=== PATIENT | male | born 1960 | race Caucasian/White ===

== ENCOUNTER 2019-08-06 09:19 | Outpatient (CLI) | payer BC, OTHER ==
--- NOTE | 2019-08-06 09:39 | RAD ---
EXAM: Chest 2 views: HISTORY: Night sweats and fever COMPARISON: None. FINDINGS: There is a normal-sized cardiomediastinal silhouette. There is no evidence of consolidation, mass, or pleural effusion. The bones are unremarkable. IMPRESSION: No evidence of acute cardiopulmonary disease
== END 2019-08-06 09:20 | disposition home or self-care (01) ==
LOC: SCSRAD 09:19
PROVIDERS: ATTEND Internal Medicine
DX: R61 Generalized hyperhidrosis (principal)
CPT/HCPCS: 71046

== ENCOUNTER 2022-04-04 05:44 | Day surgery (SDC) | payer BC ==
[2022-03-30 15:05] LABS: Bilirubin Neg (Negative); Blood, Urine 25 (Negative); Clarity Clear (Clear); Glucose, Urine (Dipstick) Normal (Negative); Ketone, Urine Negative (Negative); Leukocyte Negative (Negative); Nitrite Negative (Negative); Protein, Urine (Dipstick) Negative (Neg-Trace); Urobilinogen Normal mg/dL (Less than 2)
[2022-03-30 15:13] LABS: Mean Corpuscular HGB CONC 33.7 g/dL (32.0-36.0); Mean Corpuscular Hemoglobin 29.7 pg (27.0-33.0); Mean Corpuscular Volume 88.1 fl (81.2-95.1); Mean Platelet Volume 10.3 fl (7.4-10.4); Platelet Count 291 10x3/uL (150-450); Red Blood Cell (RBC) Count 4.71 10x6/uL (4.32-5.72); White Blood Cell (WBC) Count 4.6 10x3/uL (3.5-10.5)
[2022-03-30 15:16] LABS: Bacteria/HPF None Seen HPF (None Seen); RBC/HPF 0-3 HPF (0-3); Squamous Epithelial 0-3 HPF (0-3); WBC/HPF None Seen HPF (0-3)
[2022-03-30 15:29] LABS: INR-International Normal Ratio 0.9; PTT 28.2 sec (22.0-33.0); Prothrombin Time 9.7 sec (9.5-12.1)
[2022-03-30 15:33] LABS: Anion Gap 15 mmol/L (10-20); BUN (Urea Nitrogen) 18 mg/dL (8.4-25.7); Calc. Creatinine Clearance 0 mL/min (70-130); Calcium 9.3 mg/dL (7.8-10.44); Carbon Dioxide 27 mmol/L (22-29); Chloride 105 mmol/L (98-107); Estimated GFR 70; Glucose 85 mg/dL (70-105); Potassium 4.1 mmol/L (3.5-5.1); Sodium 143 mmol/L (136-145)
[2022-04-03 09:49] VITALS: BMI 24.3
[2022-04-04] MEDS ORDERED: B & O 30 MG SUPP ONE (07:16)
[2022-04-04] MEDS ORDERED: fentaNYL Citrate/PF 100 MCG/2 ML SYRINGE ONE (07:21)
[2022-04-04] MEDS ORDERED: Levofloxacin 500 mg/D5W 100 ml Premix Bag ONE (07:22)
[2022-04-04] MEDS ORDERED: SUGAMMADEX SODIUM 200 MG/2 ML VIAL ONE (07:22)
[2022-04-04] MEDS ORDERED: Dexamethasone 20 MG/5 ML VIAL ONE (07:32)
[2022-04-04] MEDS ORDERED: Ketorolac Tromethamine 30 MG/ML VIAL ONE (07:32)
[2022-04-04] MEDS ORDERED: Ondansetron PF 4 MG/2 ML Vial ONE (07:32)
[2022-04-04] MEDS ORDERED: PROPOFOL 200 MG/20 ML VIAL ONE (07:32)
[2022-04-04] MEDS ORDERED: PHENYLEPHRINE-NS 100 MCG/ML 10 ML SYRINGE ONE (07:32)
[2022-04-04] MEDS ORDERED: Promethazine HCl 25 MG/ML VIAL IVPB PRN (07:57)
[2022-04-04] MEDS ORDERED: HYDROmorphone 2 MG/ML VIAL SLOW IVP PRN (07:57)
[2022-04-04] MEDS ORDERED: Meperidine HCl/PF 25 MG/ML VIAL SLOW IVP PRN (07:57)
[2022-04-04] MEDS ORDERED: Phenazopyridine HCl 100 MG TAB ONE (08:53)
[2022-04-04] MEDS ORDERED: Oxybutynin 5 MG TAB ONE (08:53)
[2022-04-04] MEDS ORDERED: HYDROcodone/Acetaminophen 5/325 mg Tablet ONE (10:40)
== END 2022-04-04 12:09 | disposition home or self-care (01) ==
LOC: SDC 05:44
PROVIDERS: ATTEND Urology
PROC: 0T7D8DZ Dilation of Urethra with Intraluminal Device, Via Natural or Artificial Opening Endoscopic (ICD-10-PCS; principal; 2022-04-04)
DX: N40.1 Benign prostatic hyperplasia with lower urinary tract symptoms (principal); N32.3 Diverticulum of bladder; R35.0 Frequency of micturition; N52.9 Male erectile dysfunction, unspecified; I10 Essential (primary) hypertension; Z79.899 Other long term (current) drug therapy; Z98.890 Other specified postprocedural states
CPT/HCPCS: 80048; 81001; 85027; 85610; 85730; 86850; 86900; 86901; 87086; J1100; J1885; J1956; J2405; J2704; L8699

== ENCOUNTER 2024-02-12 06:04 | Observation (INO) | payer BC ==
[2024-02-11 10:05] LABS: Bacteria/HPF None Seen HPF (None Seen); Bilirubin Negative (Negative); Blood, Urine 2+ (Negative); Clarity Clear (Clear); Glucose, Urine (Dipstick) Normal (Negative); Ketone, Urine Negative (Negative); Leukocyte Negative Leu/uL (Negative); Nitrite Negative (Negative); Protein, Urine (Dipstick) 10 mg/dL (Neg-Trace); RBC/HPF 21-50 HPF (0-3); Specific Gravity, Urine 1.022 (1.002-1.036); Squamous Epithelial 0-3 HPF (0-3); Urobilinogen Normal mg/dL (Less than 2); WBC/HPF 0-3 HPF (0-3)
[2024-02-12] MEDS ORDERED: Rocuronium Bromide 10 MG/ML (10ML VIAL) ONE ×2 (06:49→06:50)
[2024-02-12] MEDS ORDERED: PROPOFOL 20 ML ONE (06:49)
[2024-02-12] MEDS ORDERED: Midazolam HCl 2 mg/2 ml Vial ONE (06:49)
[2024-02-12] MEDS ORDERED: fentaNYL PF 100 MCG/2 ML SYRINGE ONE ×3 (06:49→10:35)
[2024-02-12] MEDS ORDERED: LevoFLOXacin D5W 500 mg (100 mL) BAG ONE (07:06)
[2024-02-12] MEDS ORDERED: Dexamethasone 20 MG/5 ML VIAL ONE (07:56)
[2024-02-12] MEDS ORDERED: Ondansetron PF 4 MG/2 ML Vial ONE (07:56)
[2024-02-12] MEDS ORDERED: Ketamine In 0.9 % NaCl 50 MG/5 ML SYRINGE ONE (08:32)
[2024-02-12] MEDS ORDERED: SUGAMMADEX SODIUM 200 MG/2 ML VIAL ONE (09:24)
[2024-02-12] MEDS ORDERED: hydrALAZINE 20 MG/ML VIAL SLOW IVP PRN (09:44)
[2024-02-12] MEDS ORDERED: Mag-Al 1200 mg/1200 mg/30 ML UDCUP PO PRN (09:44)
[2024-02-12] MEDS ORDERED: diphenhydrAMINE 50 MG/ML VIAL IVP PRN (09:44)
[2024-02-12] MEDS ORDERED: Morphine 2 MG/ML VIAL SLOW IVP PRN (09:44)
[2024-02-12] MEDS ORDERED: ALPRAZolam 0.25 MG TAB PO PRN (09:46)
[2024-02-12] MEDS ORDERED: Hyoscyamine SL 0.125 MG TAB ONE (09:54)
[2024-02-12] MEDS: Hyoscyamine SL 0.125 MG TAB SL SCH (09:56)
[2024-02-12] MEDS: Sodium Chloride 0.9% 1,000 ML IV SCH (10:00)
[2024-02-12] MEDS ORDERED: Phenazopyridine HCl 100 MG TAB ONE (10:21)
[2024-02-12 10:33] LABS: #Basophils 0.03 10x3/uL (0.0-0.2); %Basophils 0.5 % (0.0-1.0); %Eosinophils 0.8 % (0.0-10.0); %Lymphocytes 7.6 % (21.0-51.0); %Neutrophils 86.6 % (42.0-75.0); Hematocrit 42.7 % (42.0-52.0); Hemoglobin 14.3 g/dL (14.0-18.0); Mean Corpuscular HGB CONC 33.5 g/dL (32.0-36.0); Mean Corpuscular Hemoglobin 30.3 pg (27.0-31.0); Mean Corpuscular Volume 90.5 fL (78.0-98.0); Mean Platelet Volume 9.3 fL (7.4-10.4); Platelet Count 230 10x3/uL (130-400); RBC Distribution Width 12.6 % (11.5-14.5); Red Blood Cell (RBC) Count 4.72 mill/uL (4.70-6.10)
[2024-02-12 10:42] LABS: Anion Gap 10 mmol/L (10-20); BUN (Urea Nitrogen) 18 mg/dL (8.4-25.7); Calc. Creatinine Clearance 73 mL/min (70-130); Calcium 8.6 mg/dL (7.8-10.44); Carbon Dioxide 26 mmol/L (23-31); Chloride 107 mmol/L (98-107); Estimated GFR 78; Glucose 98 mg/dL (80-115); Potassium 5.3 mmol/L (3.5-5.1); Sodium 138 mmol/L (136-145)
[2024-02-12] MEDS ORDERED: fentaNYL 50 mcg/mL 1 mL Vial ONE (12:03)
[2024-02-12] MEDS ORDERED: HYDROmorphone 0.5 MG/0.5 ML SYRINGE ONE ×3 (12:03→15:43)
[2024-02-12] MEDS: HYDROcodone/Acetaminophen 5/325 mg Tablet PO PRN ×2 (16:58→21:30)
[2024-02-12] MEDS: Phenazopyridine HCl 100 MG TAB PO SCH (16:59)
[2024-02-12 17:02] VITALS: BMI 26.9
[2024-02-12] MEDS ORDERED: Ondansetron PF 4 MG/2 ML Vial IVP PRN ×2 (17:15→17:17)
[2024-02-12] MEDS: Ezetimibe 10 MG TAB PO SCH (20:28)
[2024-02-12] MEDS: Atorvastatin Calcium 10 MG TAB PO SCH (20:28)
[2024-02-12] MEDS: Montelukast Sodium 10 mg Tablet PO SCH (20:28)
[2024-02-12] MEDS: Famotidine/PF 20 mg/2ml Vial SLOW IVP SCH (20:29)
[2024-02-12] MEDS: Docusate 100 MG CAP PO SCH (20:29)
[2024-02-12] MEDS ORDERED: Pravastatin Sodium 40 MG TAB PO SCH (21:00)
[2024-02-13 04:16] LABS: #Basophils Less than 0.03 10x3/uL (0.0-0.2); #Eosinphils Less than 0.03 10x3/uL (0.0-0.7); %Basophils 0.1 % (0.0-1.0); %Lymphocytes 10.8 % (21.0-51.0); %Monocytes 10.1 % (0.0-10.0); %Neutrophils 78.6 % (42.0-75.0); Hematocrit 41.9 % (42.0-52.0); Hemoglobin 13.8 g/dL (14.0-18.0); Mean Corpuscular HGB CONC 32.9 g/dL (32.0-36.0); Mean Corpuscular Hemoglobin 30.1 pg (27.0-31.0); Mean Corpuscular Volume 91.5 fL (78.0-98.0); Mean Platelet Volume 9.2 fL (7.4-10.4); Platelet Count 226 10x3/uL (130-400); RBC Distribution Width 12.7 % (11.5-14.5); Red Blood Cell (RBC) Count 4.58 mill/uL (4.70-6.10)
[2024-02-13 04:33] LABS: Anion Gap 14 mmol/L (10-20); BUN (Urea Nitrogen) 13 mg/dL (8.4-25.7); Calc. Creatinine Clearance 74 mL/min (70-130); Calcium 8.6 mg/dL (7.8-10.44); Carbon Dioxide 19 mmol/L (23-31); Chloride 110 mmol/L (98-107); Estimated GFR 76; Glucose 117 mg/dL (80-115); Potassium 4.6 mmol/L (3.5-5.1); Sodium 138 mmol/L (136-145)
[2024-02-13] MEDS: cefTRIAXone\\ROCEPHIN 1 GM in Sodium Chloride 0.9% 100 ML IVPB SCH (05:39)
[2024-02-13] MEDS: Tamsulosin HCl 0.4 MG CAP PO SCH (08:35)
[2024-02-13] MEDS: Polyethylene Glycol 3350 17 GM Packet PO SCH (08:35)
[2024-02-13] MEDS: Propranolol HCl 20 MG TAB PO SCH (08:36)
[2024-02-13] MEDS: Pantoprazole DR 40 MG TAB PO SCH (08:36)
[2024-02-13] MEDS ORDERED: Non-Formulary Item 1 EACH (Omeprazole [Omeprazole] 20 MG Capsule.Dr) PO SCH (09:00)
[2024-02-13] MEDS: Zolpidem Tartrate 5 MG TAB PO PRN (21:17)
[2024-02-14 05:43] LABS: #Basophils 0.04 10x3/uL (0.0-0.2); %Basophils 0.7 % (0.0-1.0); %Eosinophils 1.8 % (0.0-10.0); %Lymphocytes 31.7 % (21.0-51.0); %Monocytes 10.2 % (0.0-10.0); %Neutrophils 55.2 % (42.0-75.0); Hematocrit 38.2 % (42.0-52.0); Hemoglobin 12.5 g/dL (14.0-18.0); Mean Corpuscular HGB CONC 32.7 g/dL (32.0-36.0); Mean Corpuscular Volume 91.6 fL (78.0-98.0); Mean Platelet Volume 9.8 fL (7.4-10.4); Platelet Count 224 10x3/uL (130-400); RBC Distribution Width 13.2 % (11.5-14.5); Red Blood Cell (RBC) Count 4.17 mill/uL (4.70-6.10)
[2024-02-14 05:53] LABS: Anion Gap 12 mmol/L (10-20); BUN (Urea Nitrogen) 12 mg/dL (8.4-25.7); Calc. Creatinine Clearance 81 mL/min (70-130); Calcium 8.3 mg/dL (7.8-10.44); Carbon Dioxide 24 mmol/L (23-31); Chloride 111 mmol/L (98-107); Estimated GFR 84; Glucose 99 mg/dL (80-115); Potassium 4.2 mmol/L (3.5-5.1); Sodium 143 mmol/L (136-145)
[2024-02-14 07:36] VITALS: TEMP 98.2
== END 2024-02-14 13:50 | disposition home or self-care (01) ==
LOC: SDC 06:04 → IMCU/EMU 16:32 → INTOOBSV 16:32
PROVIDERS: ADMIT Urology; ATTEND Urology
PROC: 0VT08ZZ Resection of Prostate, Via Natural or Artificial Opening Endoscopic (ICD-10-PCS; principal; 2024-02-14)
DX: N40.1 Benign prostatic hyperplasia with lower urinary tract symptoms (principal); F41.9 Anxiety disorder, unspecified; I10 Essential (primary) hypertension; R35.0 Frequency of micturition; N32.3 Diverticulum of bladder; N52.9 Male erectile dysfunction, unspecified
CPT/HCPCS: 36415; 80048; 81001; 85025; 86850; 86900; 86901; 87086; 88300; 88305; A4333; C1747; J0696; J1100; J1170; J1956; J2250; J2405; J2704; J3010; J3490; J7030